=== PATIENT | female | born 1985 | race African-American/Black ===

== ENCOUNTER 2016-05-09 17:41 | Emergency (ER) | payer MEDICAID ==
[~2016-05-09] VITALS: Ht 160 cm; Wt 68.0 kg
[~2016-05-09 17:41] MED LIST: AMOXICILLIN500 MG ORAL; FLUCONAZOLE150 MG ORAL; HYDROCODON-ACE1 EA15 ORAL; METRONIDAZOLE500 MG ORAL; NKM; NORCO 5-325 TA1 EACH ORAL
[2016-05-09 18:07] VITALS: BP 113/72
[2016-05-09] MEDS ORDERED: ROBAXIN-750750 MG PO (18:12)
[2016-05-09] MEDS ORDERED: IBUPROFEN600 MG ORAL (18:12)
[2016-05-09 18:16] VITALS: BP 113/72
--- NOTE | 2016-05-09 19:44 | Emergency Room Report ---
History of Present Illness General Chief Complaint: Neck Pain Source: Patient Present Illness HPI The patient is a 31-year-old female presenting with left neck and shoulder tightness which began one week prior. The patient is unsure of why this is and denies any injury. The patient states that she may have slept wrong. Pain is described as a 7/10 tightness and does not radiate. Pain worse with neck and arm movement. Patient denies any numbness or tingling. The patient denies any other symptoms including headache, blurred vision, altered level of consciousness, dizziness, nausea, vomiting, fever, chills Allergies: Coded Allergies: No Known Allergies (Verified Allergy, Unknown, 04/24/10) Patient History Past Medical History: see triage record Pertinent Family History: none Last Menstrual Period: 05/05/16 Now: No Reviewed Nursing Documentation: PMH: Agreed, PSxH: Agreed Nursing Documentation-PMH Past Medical History: No Stated History Review of Systems All Other Systems: negative except mentioned in HPI Physical Exam Vital Signs Date Time Temp Pulse Resp B/P Pulse Ox O2 Delivery O2 Flow Rate FiO2 05/09/16 17:54 97.9 84 16 110/65 100 Room Air Sp02 EP Interpretation: reviewed, normal General Appearance: no apparent distress, alert, GCS 15, non-toxic Head: normocephalic, atraumatic Eyes: bilateral eye PERRL, bilateral eye normal inspection ENT: hearing grossly normal, normal pharynx, no angioedema, normal voice Neck: full range of motion, no bony tend, tender lateral - L Respiratory: chest non-tender, lungs clear, normal breath sounds, speaking full sentences Musculoskeletal: normal inspection, gait/station normal, normal range of motion , tender - Tender to palpation over the left lateral neck and trapezius Neurologic: alert, oriented x3, responsive, motor strength/tone normal, sensory intact, speech normal Psychiatric: judgement/insight normal, memory normal, mood/affect normal, no suicidal/homicidal ideation Reflexes: 3+ bicep (R), 3+ bicep (L), 3+ tricep (R), 3+ tricep (L), 3+ knee (R) , 3+ knee (L) Skin: normal color, no rash, warm/dry, well hydrated Lymphatic: no adenopathy Procedures Splinting Splinting : Consent: Verbal Location: L arm Pre-Made Type: sling Pre-Proc Neuro Vasc Exam: normal Post-Proc Neuro Vasc Exam: normal Patient Tolerated: Well Complications: None Medical Decision Making PA Attestation Dr. Saavedra is my supervising physician. Patient management was discussed with my supervising physician Diagnostic Impression: Primary Impression: Muscle spasm ER Course The patient is a 31-year-old female presenting with left neck and shoulder pain Ddx considered include but not limited to muscle spasm , sprain/strain, fracture , contusion Physical exam: Vitals within normal limits. No apparent distress There is tenderness to palpation along the left trapezius. Pain worse with shrugging left shoulder and abduction of left arm. No obvious deformity. Full active range of motion of neck and shoulder. No nuchal rigidity. No bony tenderness The patient is given Motrin and left arm placed in sling. Patient was discharged home with a prescription for Motrin and Robaxin. The patient will apply hot packs to the area. ER precautions are given and the patient will followup with primary care Last Vital Signs Date Time Temp Pulse Resp B/P Pulse Ox O2 Delivery O2 Flow Rate FiO2 05/09/16 18:16 97.5 75 14 113/72 100 Room Air Status: improved Disposition: HOME, SELF-CARE Condition: Improved Scripts Ibuprofen* (MOTRIN*) 600 Mg Tablet 600 MG ORAL Q8H Y for For Pain, #30 TAB 0 Refills Prov: RUTH COLBERT.A. 05/09/16 Methocarbamol* (ROBAXIN-750*) 750 Mg Tablet 750 MG PO TID, #21 TAB 0 Refills Prov: RUTH COLBERT.A. 05/09/16 Patient Instructions: Muscle Strain Additional Instructions: I discussed my findings with the patient. All questions and concerns have been answered. Treatment and medication compliance have been addressed. I advised the patient that they need to follow up with PMD in 3-5 days. Return to ED if pain remains or worsens, numbness or tingling occurs, new rash is noticed, fever is noticed, or if needed for any reason. Patient verbalized understanding of discharge instructions. RUTH COLBERT May 09, 2016 19:44
== END 2016-05-09 18:16 | disposition home or self-care (01) ==
LOC: EMR 18:05
DX: M62.838 Other muscle spasm (principal); M54.2 Cervicalgia; M25.512 Pain in left shoulder
CPT/HCPCS: 29240; 99284

== ENCOUNTER 2016-09-04 11:43 | Emergency (ER) | payer MEDICAID ==
[~2016-09-04] VITALS: Ht 162.6 cm; Wt 70.3 kg
[~2016-09-04 11:43] MED LIST changes: +IBUPROFEN600 MG ORAL; +ROBAXIN-750750 MG PO
[2016-09-04 11:49] VITALS: BP 112/77
[2016-09-04] MEDS ORDERED: KEFLEX500 MG ORAL (12:04)
[2016-09-04] MEDS ORDERED: IBUPROFEN600 MG ORAL (12:04)
[2016-09-04 12:15] VITALS: BP 112/77
--- NOTE | 2016-09-04 12:38 | Emergency Room Report ---
History of Present Illness General Chief Complaint: Skin Rash/Abscess Source: Patient Present Illness HPI 31YOF walk-in with 3 days pain, swelling to radial/side aspect of left index finger s/p ?bite. Able to flex/extend at MCP, PIP but noted progressive swelling. No pus drainage. No fever/chills. No history of DM. Allergies: Coded Allergies: No Known Allergies (Verified Allergy, Unknown, 04/24/10) Patient History Past Medical History: none Past Surgical History: none Pertinent Family History: none Social History: Denies: alcohol use, drug use, smoking Last Menstrual Period: 08/27/16 Now: No Immunizations: UTD Reviewed Nursing Documentation: PMH: Agreed, PSxH: Agreed Nursing Documentation-PMH Past Medical History: No Stated History Review of Systems All Other Systems: negative except mentioned in HPI Physical Exam Vital Signs Date Time Temp Pulse Resp B/P Pulse Ox O2 Delivery O2 Flow Rate FiO2 09/04/16 11:49 97.9 86 15 112/77 99 Room Air Sp02 EP Interpretation: reviewed, normal General Appearance: normal inspection, well appearing, no apparent distress, alert, GCS 15, non-toxic Head: normocephalic, atraumatic Eyes: bilateral eye EOMI, bilateral eye PERRL ENT: normal ENT inspection, hearing grossly normal, normal voice Neck: normal inspection, full range of motion, supple, no bony tend Respiratory: normal inspection, lungs clear, normal breath sounds, no respiratory distress, no retraction, no wheezing Cardiovascular #1: regular rate, rhythm, no edema Genitourinary: no CVA tenderness Musculoskeletal: other - Left index finger: dorsal aspect mild swelling, redness. ?bite lula. Neurologic: normal inspection, alert, oriented x3, responsive, groover and striper operator III-XII nml as tested, motor strength/tone normal, speech normal Psychiatric: normal inspection, judgement/insight normal, mood/affect normal Skin: normal inspection, normal color, no rash Lymphatic: normal inspection Medical Decision Making Diagnostic Impression: Primary Impression: Cellulitis and abscess of hand ER Course Localized to left index finger, proximal phalange Afebrile No signs of symptoms of systemic illness Rx Keflex DC home PMD followup Last Vital Signs Date Time Temp Pulse Resp B/P Pulse Ox O2 Delivery O2 Flow Rate FiO2 09/04/16 12:15 97.9 86 15 112/77 99 Room Air Status: improved Disposition: HOME, SELF-CARE Condition: Improved Scripts Ibuprofen* (MOTRIN*) 600 Mg Tablet 600 MG ORAL THREE TIMES A DAY for For Pain for 7 Days, #30 TAB 0 Refills Prov: DONI SANDRA M.D. 09/04/16 Cephalexin* (KEFLEX*) 500 Mg Capsule 500 MG ORAL Q6H for 7 Days, #28 CAP 0 Refills Prov: DONI SANDRA M.D. 09/04/16 Referrals: NOT CHOSEN [facility]/,REFERRING (PCP) Patient Instructions: Cellulitis, Ubqa-[id number] Additional Instructions: - Take all antibiotics as prescribed until finished - Put finger in ice/water immersion as often as possible - Return to ER for worsening pain, swelling DONI SANDRA M.D. Sep 04, 2016 12:38
== END 2016-09-04 12:15 | disposition home or self-care (01) ==
LOC: EMR 12:14
DX: L03.012 Cellulitis of left finger (principal)
CPT/HCPCS: 99284

== ENCOUNTER 2016-12-07 16:05 | Emergency (ER) | payer MEDICAID ==
[~2016-12-07] VITALS: Ht 162.6 cm; Wt 65.8 kg
[~2016-12-07 16:05] MED LIST changes: +KEFLEX500 MG ORAL
[2016-12-07 16:33] VITALS: BP 119/71
--- NOTE | 2016-12-07 16:37 | Emergency Room Report ---
History of Present Illness General Chief Complaint: Upper Extremity Injury Source: Patient Present Illness HPI Patient is a 31-year-old female presents today with right middle finger pain. She states she was moving a TV in when she dropped it on her right third finger. She states pain is 5/10 in severity and she has not taken medication for it. Denies any numbness, tingling, loss of sensation. Allergies: Coded Allergies: No Known Allergies (Verified Allergy, Unknown, 04/24/10) Patient History Reviewed Nursing Documentation: PMH: Agreed, PSxH: Agreed Nursing Documentation-PMH Past Medical History: No Stated History Review of Systems Musculoskeletal: Reports: joint pain All Other Systems: negative except mentioned in HPI Physical Exam Vital Signs Date Time Temp Pulse Resp B/P (MAP) Pulse Ox O2 Delivery O2 Flow Rate FiO2 12/07/16 16:26 98.2 88 20 116/73 98 Room Air Sp02 EP Interpretation: reviewed, normal General Appearance: no apparent distress, alert, GCS 15, non-toxic Head: normocephalic, atraumatic Eyes: bilateral eye normal inspection, bilateral eye PERRL ENT: hearing grossly normal, normal pharynx, no angioedema, normal voice Neck: full range of motion, supple/symm/no masses Respiratory: chest non-tender, lungs clear, normal breath sounds, speaking full sentences Cardiovascular #1: regular rate, rhythm, no edema Cardiovascular #2: 2+ carotid (R), 2+ carotid (L), 2+ radial (R), 2+ radial (L) , 2+ dorsalis pedis (R), 2+ dorsalis pedis (L) Gastrointestinal: normal bowel sounds, non tender, soft, non-distended, no guarding, no rebound Rectal: deferred Genitourinary: normal inspection, no CVA tenderness Musculoskeletal: back normal, gait/station normal, normal range of motion, non- tender, other - tenderness to pation over the DIP joint PIP ohe right third finger, full range of motion of the finger, neurovascularly intact Neurologic: alert, oriented x3, responsive, motor strength/tone normal, sensory intact, speech normal Psychiatric: judgement/insight normal, memory normal, mood/affect normal, no suicidal/homicidal ideation Reflexes: 3+ bicep (R), 3+ bicep (L), 3+ tricep (R), 3+ tricep (L), 3+ knee (R) , 3+ knee (L) Skin: normal color, no rash, warm/dry, well hydrated Lymphatic: no adenopathy Medical Decision Making PA Attestation supervising physician is Dr. Olson ER Course Patient found a fracture of the third distal phalanx. The patient was placed in a finger splint, neurovascularly intact before and after splinting. Reevaluation at 1756, patient states his intravenous medication. The patient is discharged home along with tramadol and instructed to follow up with PCP as needed. Patient understands and is agreeable plan the Other X-Ray Diagnostic Results Other X-Ray Diagnostic Results : X-Ray ordered: right hand # of Views/Limited Vs Complete: 4 View Indication: Pain EP Interpretation: Yes Interpretation: no dislocation, no soft tissue swelling, other - fracture of the third distal phalanx Electronically Signed by: davis daniel Last Vital Signs Date Time Temp Pulse Resp B/P (MAP) Pulse Ox O2 Delivery O2 Flow Rate FiO2 12/07/16 16:26 98.2 88 20 116/73 98 Room Air Status: improved Disposition: HOME, SELF-CARE Condition: Stable Scripts Tramadol Hcl* (ULTRAM*) 50 Mg Tablet 50 MG ORAL Q6H Y for For Pain, #20 TAB 0 Refills Prov: Davis Daniel 12/07/16 Davis Daniel Dec 07, 2016 16:37
[2016-12-07] MEDS ORDERED: Acetaminophen 500mg (ES) tab ORAL ONE (16:45)
[2016-12-07] MEDS ORDERED: TRAMADOL HCL50 MG ORAL (17:57)
[2016-12-07 18:21] VITALS: BP 122/74
[2016-12-07 18:22] VITALS: BP 122/74
--- NOTE | 2016-12-08 12:32 | Diagnostic Imaging Report ---
Indication: PAIN Technique: 3 views right hand Comparison: none Findings: There is an oblique fracture of the third middle phalanx. This is distracted and demonstrates about 3 mm volar displacement. Fractures comminuted, does not appear to reach the articular surface. No other acute fractures. No dislocations. Impression: Positive for third middle phalangeal fracture This agrees with the findings describe by the attending physician electronic medical record
== END 2016-12-07 18:11 | disposition home or self-care (01) ==
LOC: EMR 16:44
DX: S62.622A Displaced fracture of middle phalanx of right middle finger, initial encounter for closed fracture (principal); W20.8XXA Other cause of strike by thrown, projected or falling object, initial encounter; Y92.009 Unspecified place in unspecified non-institutional (private) residence as the place of occurrence of the external cause
CPT/HCPCS: 99283

== ENCOUNTER 2017-06-22 09:34 | Emergency (ER) | payer MEDICAID ==
[~2017-06-22] VITALS: Ht 162.6 cm; Wt 68.5 kg
[~2017-06-22 09:34] MED LIST changes: +TRAMADOL HCL50 MG ORAL
[2017-06-22] MEDS ORDERED: PHENAZOPYRIDIN200 MG ORAL (10:01)
[2017-06-22] MEDS ORDERED: KEFLEX500 MG ORAL (10:01)
[2017-06-22] MEDS ORDERED: Cephalexin 500mg cap ORAL SCH (10:15)
[2017-06-22 10:39] LABS: APPEARANCE,URINE SLIGHTLY CLOUDY; BILIRUBIN, URINE NEGATIVE (NEGATIVE); COLOR,URINE PALE YELLOW; GLUCOSE, URINE (UA) NEGATIVE (NEGATIVE); KETONES,URINE 3+ (NEGATIVE); LEUKOCYTE ESTERASE ,URINE 3+ (NEGATIVE); NITRITE,URINE NEGATIVE (NEGATIVE); PH,URINE 5 (4.5-8.0); PROTEIN,URINE 3+ (NEGATIVE); UROBILINOGEN,URINE NORMAL MG/DL (0.0-1.0)
[2017-06-22 10:56] VITALS: BP 127/80
--- NOTE | 2017-06-22 10:59 | Emergency Room Report ---
History of Present Illness General Chief Complaint: Female Urogenital Problems Source: Patient Present Illness HPI Patient is a 32-year-old female who presented after increased dysuria and urinary frequency. Patient reports having increased small volumes of urine. She denies any fever. She denies any flank pain. She had not been vomiting. Patient states that she feels that she may have urinary infection. She denies any vaginal discharge. The patient states she has an IUD. Allergies: Coded Allergies: No Known Allergies (Verified Allergy, Unknown, 04/24/10) Patient History Past Medical History: see triage record Reviewed Nursing Documentation: PMH: Agreed; PSxH: Agreed Nursing Documentation-PMH Past Medical History: No Stated History Review of Systems All Other Systems: negative except mentioned in HPI Physical Exam Vital Signs Date Time Temp Pulse Resp B/P (MAP) Pulse Ox O2 Delivery O2 Flow Rate FiO2 06/22/17 09:38 98.2 90 20 130/83 98 Room Air 98.2 General Appearance: well appearing, no apparent distress, alert, GCS 15 Head: normocephalic, atraumatic ENT: hearing grossly normal, normal voice Neck: full range of motion, supple Respiratory: no respiratory distress, speaking full sentences Cardiovascular #1: normal inspection, normal peripheral pulses, no edema Musculoskeletal: no calf tenderness Neurologic: normal inspection, alert, oriented x3, responsive, normal gait Psychiatric: mood/affect normal Skin: no rash Medical Decision Making Diagnostic Impression: Primary Impression: Urinary tract infection ER Course Patient presented for dysuria. Differential diagnosis included was not limited to appendicitis, urinary tract infection, pelvic inflammatory disease, urethritis, herpes among others. Patient has a benign exam and does not appear to require any further imaging or laboratory testing at this time. urinalysis shows evidence of urinary tract infection. Patient will be given prescription for oral antibiotics.The patient is advised to follow up with primary care doctor in 1-2 days. Patient is advised to return if any worsening condition or if any changes in status that are concerning. This report is dictated with [employer] cloud consultant software which may occasionally lead to discrepancies related to use of this software. Labs Test 06/22/17 09:40 Urine Color Pale yellow Urine Appearance Slightly cloudy Urine pH 5 (4.5-8.0) Urine Specific [place] 1.020 (1.005-1.035) Urine Protein 3+ (NEGATIVE) Urine Glucose (UA) Negative (NEGATIVE) Urine Ketones 3+ (NEGATIVE) Urine Occult Blood 4+ (NEGATIVE) Urine Nitrite Negative (NEGATIVE) Urine Bilirubin Negative (NEGATIVE) Urine Urobilinogen Normal MG/DL (0.0-1.0) Urine Leukocyte Esterase 3+ (NEGATIVE) Urine HCG, Qualitative Negative (NEGATIVE) Last Vital Signs Date Time Temp Pulse Resp B/P (MAP) Pulse Ox O2 Delivery O2 Flow Rate FiO2 06/22/17 09:38 98.2 90 20 130/83 98 Room Air 98.2 Status: improved Disposition: HOME, SELF-CARE Condition: Stable Scripts Phenazopyridine Hcl* (PYRIDIUM*) 200 Mg Tablet 200 MG ORAL THREE TIMES A DAY, #9 TAB 0 Refills Prov: Rafat Martinez 06/22/17 Cephalexin* (KEFLEX*) 500 Mg Capsule 500 MG ORAL Q6H, #28 CAP 0 Refills Prov: Rafat Martinez 06/22/17 Referrals: [facility],REFER (PCP) Patient Instructions: Urinary Tract Infection Rafat Martinez Jun 22, 2017 10:58
== END 2017-06-22 10:56 | disposition home or self-care (01) ==
LOC: EMR 10:01
DX: N39.0 Urinary tract infection, site not specified (principal)
CPT/HCPCS: 81003; 81025; 82962; 87086; 87181; 99284